=== PATIENT | female | born 2000 | race Caucasian/White ===

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

== ENCOUNTER 2018-01-09 09:07 | Emergency (ER) | payer OTHER ==
[~2018-01-09] VITALS: Ht 165.1 cm; Wt 64.5 kg
[~2018-01-09 09:07] MED LIST changes: +ASPERCREME1 EACH TP
[2018-01-09 11:35] VITALS: BP 108/58
== END 2018-01-09 11:35 | disposition home or self-care (01) ==
LOC: EME 09:07
DX: R51 Headache (principal); M41.9 Scoliosis, unspecified; Z87.440 Personal history of urinary (tract) infections
CPT/HCPCS: 70450; 99281; 99285; J1200; J2765; J7030